=== PATIENT | female | born 1945 | race Caucasian/White ===

== ENCOUNTER 2020-09-03 18:57 | Emergency (ER) | payer MEDICARE, BC ==
[~2020-09-03] VITALS: Ht 157.5 cm; Wt 65.9 kg
[2020-09-03 19:02] VITALS: TEMP 97.8
[2020-09-03 20:40] VITALS: BP 155/88; PULSE 80
== END 2020-09-03 20:40 | disposition home or self-care (01) ==
LOC: COL.ER 18:57
DX: S06.2X0A Diffuse traumatic brain injury without loss of consciousness, initial encounter (principal); W01.198A Fall on same level from slipping, tripping and stumbling with subsequent striking against other object, initial encounter